=== PATIENT | female | born 1940 | race Caucasian/White ===

== ENCOUNTER 2016-11-05 08:52 | Emergency (ER) | payer MEDICARE, BC ==
[2016-11-05] MEDS ORDERED: MAG HYDROX/AL HYDROX/SIMETH 30 ML UDC PO STA (09:45)
[2016-11-05] MEDS ORDERED: LIDOCAINE VISCOUS 2% 15 ML UDC MM STA (09:45)
[2016-11-05] MEDS ORDERED: PHENobarb/HYOSCY/ATROPINE/SCOP 5 ML SYRINGE PO STA (09:45)
[2016-11-05] MEDS ORDERED: PHENobarb/HYOSCY/ATROPINE/SCOP 5 ML SYRINGE PO ONE (10:03)
[2016-11-05] MEDS ORDERED: LIDOCAINE VISCOUS 2% 15 ML UDC MM ONE (10:03)
[2016-11-05] MEDS ORDERED: MAG HYDROX/AL HYDROX/SIMETH 30 ML UDC ONE (10:03)
== END 2016-11-05 10:50 | disposition home or self-care (01) ==
DX: K21.9 Gastro-esophageal reflux disease without esophagitis (principal); I51.7 Cardiomegaly; E78.5 Hyperlipidemia, unspecified; E03.9 Hypothyroidism, unspecified; Z79.82 Long term (current) use of aspirin
CPT/HCPCS: 36415; 71010; 80053; 83690; 84484; 85025; 93005; 93010; 99283; 99284; A9270

== ENCOUNTER 2016-12-03 18:23 | Emergency (ER) | payer MEDICARE, BC ==
[2016-12-03] MEDS ORDERED: ASPIRIN CHEW 81 MG TABLET PO STA ×2 (20:37→21:01)
[2016-12-03] MEDS ORDERED: ASPIRIN 325 MG TABLET PO ONE (20:46)
[2016-12-03] MEDS ORDERED: ASPIRIN CHEW 81 MG TABLET ONE (20:49)
== END 2016-12-03 22:51 | disposition home or self-care (01) ==
DX: R07.9 Chest pain, unspecified (principal); R03.0 Elevated blood-pressure reading, without diagnosis of hypertension; E78.00 Pure hypercholesterolemia, unspecified; E03.9 Hypothyroidism, unspecified; K21.9 Gastro-esophageal reflux disease without esophagitis; Z87.891 Personal history of nicotine dependence
CPT/HCPCS: 36415; 71020; 80053; 81003; 83690; 84484; 85025; 85379; 85610; 85730; 93005; 93010; 99284; 99285; A9270

== ENCOUNTER 2016-12-11 10:35 | Outpatient (CLI) | payer MEDICARE, BC | END 2016-12-11 10:36 | disposition home or self-care (01) | DX: N64.4 Mastodynia (principal) ==

== ENCOUNTER 2017-03-19 12:05 | Outpatient (CLI) | payer MEDICARE, BC ==
--- NOTE | 2017-03-19 14:59 | XRAY Report ---
THREE-VIEW LEFT FIFTH TOE: 03/19/2017 CLINICAL INDICATION: Injury. FINDINGS: AP, lateral, oblique views of the left fifth toe are limited by positioning. No gross fra cture is appreciated. Soft tissue swelling is present. No radiopaque foreign body is seen in the so ft tissues. IMPRESSION: SOFT TISSUE SWELLING, BUT NO EVIDENCE OF ACUTE FRACTURE. JOB #: [id number] EXT JOB #:[id number]
== END 2017-03-19 12:06 | disposition home or self-care (01) ==
LOC: DI 12:05
PROVIDERS: ATTEND Podiatrist
DX: S99.922A Unspecified injury of left foot, initial encounter (principal)
CPT/HCPCS: 73660

== ENCOUNTER 2017-09-16 09:12 | Emergency (ER) | payer MEDICARE, BC ==
[2017-09-16 09:21] VITALS: BP 160/75
--- NOTE | 2017-09-16 09:33 | ED Physician Documentation ---
History of Present Illness - Stated complaint Stated Complaint: CHEST PX - Chief complaint Chief Complaint: Cardiac - History obtained from History obtained from: Patient, Family - History of Present Illness Timing: How many hours ago (5) Pain level max: 6 Pain level now: 0 Improved by: nothing Worsened by: nothing - Additonal information Additional information: Patient is a 76-year-old female who presents to the emergency department with left-sided flank and chest pain. States that she has felt very gassy today. She felt the pain at approximately 5 AM and then again when she was in the shower. Has had pain similar to this in the past with no cause found. Her pain resolved upon arrival to the emergency department when she was stuck with the IV catheter. She currently is asymptomatic. Review of Systems Ten Systems: 10 systems reviewed and negative Constitutional: denies: Fever, Chills Ears: denies: Ear pain Nose: denies: Rhinorrhea / runny nose, Congestion Throat: denies: Sore throat Cardiac: denies: Palpitations Respiratory: denies: Dyspnea, Cough, Hemoptysis, Wheezing GI: reports: Diarrhea (mild). 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 Psych: None Musculoskeletal: None - Past Surgical History Past Surgical History: Yes General: Cholecystectomy, Appendectomy HEENT: Tonsil/Adenoidectomy - Present Medications Home Medications: Ambulatory Orders Medication Instructions Recorded Confirmed Aspirin Chewable [St Viral 81 mg PO DAILY 06/01/13 12/03/16 Aspirin] Levothyroxine [Synthroid] 25 mcg PO QDAC 06/01/13 12/03/16 Omeprazole [PriLOSEC] 10 mg PO BID 11/05/16 12/03/16 - Allergies Allergies/Adverse Reactions: Allergies Allergy/AdvReac Type Severity Reaction Status Date / Time NSAIDS (Non-Steroidal Allergy Itching Verified 12/03/16 18:43 Anti-Inflamma codeine [Codeine] AdvReac Intermediate Hallucinati Verified 12/03/16 18:43 ons morphine AdvReac Intermediate Hallucinati Verified 12/03/16 18:43 ons nickel [Nickel] AdvReac Intermediate Rash Verified 12/03/16 18:43 Penicillins AdvReac Intermediate Rash Verified 12/03/16 18:43 - Social History Does the pt smoke?: No Smoking Status: Never smoker Does the pt drink ETOH?: No Does the pt have substance abuse?: No - Immunizations Immunizations are current?: Yes - POLST Patient has POLST: No PD ED PE NORMAL - Vitals Vital signs reviewed: Yes - General General: Alert and oriented X 3, No acute distress, Well developed/nourished - HEENT HEENT: PERRL, Moist mucous membranes - Neck Neck: Supple, no meningeal sign - Cardiac Cardiac: RRR, Strong equal pulses - Respiratory Respiratory: No respiratory distress, Clear bilaterally - Abdomen Abdomen: Soft, Non tender, Non distended - Back Back: No CVA TTP, No spinal TTP - Derm Derm: Warm and dry, No rash - Extremities Extremities: No deformity, No edema, No calf tenderness / cord - Neuro Neuro: Alert and oriented X 3 - Psych Psych: Normal mood, Normal affect Results - Vitals Vitals: Vital Signs - 24 hr 09/16/17 09:16 Temperature 36.3 C L Heart Rate 72 Respiratory 18 Rate Blood Pressure 160/75 H O2 Saturation 97 Oxygen O2 Source Room air - EKG (time done) 0918 Rate: Rate (enter#) (70) Rhythm: NSR [place]: Normal Intervals: Normal [place], RBBB Computer interpretation: Agree with computer - Labs Labs: Laboratory Tests 09/16/17 09/16/17 09/16/17 09:25 09:25 09:25 WBC 5.7 RBC 4.32 Hgb 12.9 Hct 38.7 MCV 89.6 MCH 30.0 MCHC 33.4 RDW 14.3 Plt Count 221 MPV 8.5 Neut # 3.3 Lymph # 1.8 [place] # 0.4 Eos # 0.1 Baso # 0.0 Absolute Nucleated RBC 0.00 Nucleated RBC % 0.0 Sodium 141 Potassium 3.7 Chloride 103 Carbon Dioxide 26 Anion Gap 12.0 BUN 16 Creatinine 0.7 Estimated GFR (MDRD) 81 L Glucose 108 H Calcium 9.1 Total Bilirubin 0.6 AST 21 ALT 16 Alkaline Phosphatase 60 Troponin I < 0.04 Total Protein 6.9 Albumin 3.9 Globulin 3.0 Albumin/Globulin Ratio 1.3 Lipase 30 09/16/17 11:58 WBC RBC Hgb Hct MCV MCH MCHC RDW Plt Count MPV Neut # Lymph # [place] # Eos # Baso # Absolute Nucleated RBC Nucleated RBC % Sodium Potassium Chloride Carbon Dioxide Anion Gap BUN Creatinine Estimated GFR (MDRD) Glucose Calcium Total Bilirubin AST ALT Alkaline Phosphatase Troponin I < 0.04 Total Protein Albumin Globulin Albumin/Globulin Ratio Lipase - Rads (name of study) cxr Radiology: Prelim report reviewed, EMP read contemporaneously, See rad report ( no acute disease) PD MEDICAL DECISION MAKING - ED course Complexity details: reviewed results, re-evaluated patient, considered differential (No ST elevation ND, no aortic dissection, no PE, no tension pneumothorax, no aortic aneurysm), d/w patient ED course: Patient is a 76-year-old female presents to the emergency department with atypical chest pain. Negative troponin 2. Normal EKG for her. No acute findings on chest x-ray. Symptoms resolved quickly in the emergency department , coinciding with an IV poke. Patient does not want to take any aspirin. She is well-appearing, nontoxic. No recurrence of symptoms. Patient counseled regarding signs and symptoms for which I believe and urgent re-evaluation would be necessary. Patient with good understanding of and agreement to plan and is comfortable going home at this time This document was made in part using voice recognition software. While efforts are made to proofread this document, sound alike and grammatical errors may occur. Departure - Departure Disposition: 01 Home, Self Care Clinical Impression: Atypical chest pain Condition: Good Instructions: ED Chest Pain Atypical Unkn Cause Follow-Up: Gissell Raza MD [Primary Care Provider] - Within 1 week Comments: The cause of your symptoms is unclear today. Return if you worsen. Discharge Date/Time: 09/16/17 12:36
[2017-09-16 09:36] LABS: BASOPHILS % (AUTO) 0.5 %; EOSINOPHILS # (AUTO) 0.1 10^3/uL (0.0-0.7); EOSINOPHILS % (AUTO) 1.8 %; HGB - HEMOGLOBIN 12.9 g/dL (12.0-16.0); LYMPHOCYTES # (AUTO) 1.8 10^3/uL (1.5-3.5); LYMPHOCYTES % (AUTO) 31.6 %; MEAN CORPUSCULAR HGB CONC 33.4 g/dL (32.0-36.0); MEAN CORPUSCULAR VOLUME 89.6 fL (81.0-99.0); MEAN PLATELET VOLUME 8.5 fL (7.9-10.8); MONOCYTES # (AUTO) 0.4 10^3/uL (0.0-1.0); MONOCYTES % (AUTO) 7.8 %; NEUTROPHILS # (AUTO) 3.3 10^3/uL (1.5-6.6); NEUTROPHILS % (AUTO) 58.3 %; PLT - PLATELET COUNT 221 10^3/uL (130-450); RED BLOOD COUNT 4.32 10^6/uL (4.20-5.40); RED CELL DISTRIBUTION WIDTH 14.3 % (12.0-15.0); WHITE BLOOD COUNT 5.7 x10^3/uL (4.8-10.8)
[2017-09-16 09:48] LABS: ALBUMIN 3.9 g/dL (3.2-5.5); ALBUMIN/GLOBULIN RATIO 1.3 (1.0-2.2); BILIRUBIN,TOTAL 0.6 mg/dL (0.2-1.0); CALCIUM 9.1 mg/dL (8.5-10.3); CREATININE 0.7 mg/dL (0.4-1.0); TOTAL PROTEIN 6.9 g/dL (6.7-8.2)
--- NOTE | 2017-09-16 10:33 | XRAY Report ---
EXAM: CHEST RADIOGRAPHY EXAM DATE: 09/16/2017 10:14 AM. CLINICAL HISTORY: Chest pain. COMPARISON: 12/03/2016. TECHNIQUE: 1 view. FINDINGS: Lungs/Pleura: No focal opacities evident. No pleural effusion. No pneumothorax. Mediastinum: Heart appears prominent in size some of which is due to the AP portable technique. Other: None. IMPRESSION: Negative portable chest for acute findings compared to 12/03/2016. [facility] Referring Provider Line: [phone] SITE ID: [id number]
== END 2017-09-16 12:36 | disposition home or self-care (01) ==
LOC: ED 09:12
DX: R07.89 Other chest pain (principal); I45.10 Unspecified right bundle-branch block; R94.31 Abnormal electrocardiogram [ECG] [EKG]; E78.00 Pure hypercholesterolemia, unspecified; E03.9 Hypothyroidism, unspecified; K21.9 Gastro-esophageal reflux disease without esophagitis; Z79.82 Long term (current) use of aspirin
CPT/HCPCS: 36415; 71045; 80053; 83690; 84484; 85025; 93005; 99283; 99284

== ENCOUNTER 2017-09-30 15:41 | Outpatient (CLI) | payer MEDICARE, BC | END 2017-09-30 15:42 | disposition home or self-care (01) | LOC: LAB.R 15:41 | PROVIDERS: ATTEND Nurse Practitioner Obstetrics & Gynecology | DX: N76.0 Acute vaginitis (principal); R30.0 Dysuria | CPT/HCPCS: 87086; 87480; 87510; 87660 ==

== ENCOUNTER 2017-10-06 13:45 | Outpatient (CLI) | payer MEDICARE, BC ==
--- NOTE | 2017-10-08 11:11 | DEXA Report ---
DEXA SCAN: 10/06/2017 CLINICAL INDICATION: Osteopenia, postmenopausal. TECHNIQUE: Dual energy x-ray absorptiometry (DXA) was performed on a [employer] system. Regions measured are the AP spine, femoral neck, and, if needed, forearm. COMPARISON: None. In accordance with the International Society for Clinical Densitometry (ISCD) guidelines, data from previous exams may be reanalyzed using current recommendations and techniques. This is done to allow a more accurate basis for comparison with the current study. FINDINGS The data for the lumbar spine is as follows: REGION BMD (g/cm/cm) T-SCORE Z-SCORE L1 0.827 -2.5 -0.5 L2 0.998 -1.7 0.3 L3 1.121 -0.7 1.3 L4 0.882 -2.6 -0.7 L1-L4 0.956 -1.9 0.1 NOTE: All evaluable vertebrae are used for classification. The data for the hip is as follows: REGION BMD (g/cm/cm) T-SCORE Z-SCORE Neck 0.936 -0.7 1.4 TOTAL 0.973 -0.3 1.7 NOTE: The femoral neck or total proximal femur, whichever is lowest, is used for classification. IMPRESSION THE WHO CLASSIFICATION BASED ON THE INTERNATIONAL REFERENCE STANDARD IS OSTEOPENIA. THE FRACTURE RISK IS INCREASED. RECOMMENDATION: Patients with diagnosis of osteoporosis or osteopenia should have regular bone mineral density assessment. For those eligible for Medicare, routine testing is allowed once every 2 years. Testing frequency can be increased for patients who have rapidly progressing disease or for those who are receiving medical therapy to restore bone mass. COMMENT: World Health Organization (WHO) definitions for osteoporosis and osteopenia: NORMAL BMD: T-score at 1.0 or higher, fracture risk is low. OSTEOPENIA BMD: T-score between 1.0 and -2.5, fracture risk is increased. OSTEOPOROSIS BMD: T-score at 2.5 or lower, fracture risk high. National Osteoporosis Foundation recommends: 1. Obtain adequate dietary calcium (at least 1200 mg per day) and vitamin D (400 -800 international units per day). 2. Participate, as appropriate, in regular weightbearing and muscle- strengthening exercise. 3. Avoid tobacco use and reduce alcohol and caffeine intake. 4. For more detailed information see the website at www.NOF.org. TD: 10/06/2017 16:44 [email or web address]
== END 2017-10-06 13:46 | disposition home or self-care (01) ==
LOC: DI 13:45
PROVIDERS: ATTEND Internal Medicine
DX: M85.88 Other specified disorders of bone density and structure, other site (principal)
CPT/HCPCS: 77080

== ENCOUNTER 2017-10-12 15:03 | Outpatient (CLI) | payer MEDICARE, BC ==
[2017-10-12 18:15] LABS: BILIRUBIN,URINE NEGATIVE (NEGATIVE); GLUCOSE, URINE (UA) NEGATIVE (NEGATIVE); KETONES,URINE (UA) NEGATIVE (NEGATIVE); LEUKOCYTE ESTERASE, URINE NEGATIVE (NEGATIVE); NITRITE,URINE NEGATIVE (NEGATIVE); OCCULT BLOOD,URINE NEGATIVE (NEGATIVE); PROTEIN,URINE NEGATIVE (NEGATIVE); UROBILINOGEN,URINE 0.2 (NORMAL) E.U./dL (NORMAL)
[2017-10-12 18:21] LABS: CLARITY,URINE CLEAR (CLEAR)
[2017-10-12 18:27] LABS: BACTERIA,URINE None Seen /HPF (None Seen); RBC,URINE 0-5 /HPF (0-5); SQUAMOUS EPITHELIAL CELL,UR NONE SEEN (<= Few)
== END 2017-10-12 15:04 | disposition home or self-care (01) ==
LOC: LAB.R 15:03
PROVIDERS: ATTEND Obstetrics & Gynecology
DX: R82.99 Other abnormal findings in urine (principal)
CPT/HCPCS: 81001

== ENCOUNTER 2017-12-01 18:58 | Outpatient (CLI) | payer MEDICARE, BC ==
--- NOTE | 2017-12-02 11:35 | Ultrasound Report ---
THYROID ULTRASOUND: 12/01/2017 CLINICAL INDICATION: Multinodular goiter. COMPARISON: 10/21/2015, 01/30/2013. TECHNIQUE: Real-time scanning was performed with area representative static images obtained. FINDINGS: The right lobe measures 5.8 x 2.1 x 1.8 cm, and the left lobe measures 4.5 x 1.4 x 1.3 cm. The isthmus measures 1 mm. The thyroid is diffusely heterogeneous. The largest nodule, in the mid portion of the right lobe, now measures 3.3 x 1.7 x 1.6 cm, not significantly changed. The largest nodule in the left lobe now measures 1.1 x 0.8 x 0.4 cm, not significantly changed. Multiple smaller bilateral nodules are stable. No new suspicious nodule is seen. IMPRESSION: STABLE APPEARANCE OF MULTINODULAR GOITER. TD: 12/02/2017 11:34
== END 2017-12-01 18:59 | disposition home or self-care (01) ==
LOC: DI 18:58
PROVIDERS: ATTEND Internal Medicine
DX: E04.2 Nontoxic multinodular goiter (principal)
CPT/HCPCS: 76536

== ENCOUNTER 2017-12-29 12:54 | Outpatient (CLI) | payer MEDICARE, BC ==
--- NOTE | 2018-01-05 13:43 | Mammography Report ---
DIGITAL SCREENING MAMMOGRAM: 12/29/2017 CLINICAL INDICATION: A 77-year-old with history of benign right breast biopsy for screening. COMPARISON: 11/2016, 10/2015, 09/2014, 09/2013, 12/2011. TECHNIQUE: Routine CC and MLO projections as well as bilateral laterally exaggerated craniocaudal views were obtained of the breasts. FINDINGS: The breasts again demonstrate heterogeneously dense fibroglandular parenchyma bilaterally. Biopsy marker in the right upper central breast is stable. Coarse and punctate, typically benign calcifications are present. No suspicious masses, clustered microcalcifications, or regions of architectural distortion are identified. IMPRESSION: BENIGN FINDINGS. RECOMMENDATION: Routine annual screening unless otherwise clinically indicated. BI-RADS CATEGORY 2 - BENIGN FINDINGS. STANDARD QUALIFYING STATEMENTS: 1. This examination was reviewed with the aid of Computer-Aided Detection (CAD). 2. A negative or benign imaging report should not delay biopsy if clinically suspicious findings are present. Consider surgical consultation if warranted. More than 5% of cancers are not identified by imaging. 3. Dense breasts may obscure an underlying neoplasm. TD: 01/05/2018 13:30
== END 2017-12-29 12:55 | disposition home or self-care (01) ==
LOC: DI 12:54
PROVIDERS: ATTEND Internal Medicine
DX: Z12.31 Encounter for screening mammogram for malignant neoplasm of breast (principal)
CPT/HCPCS: 77067

== ENCOUNTER 2018-01-03 09:46 | Outpatient (CLI) | payer MEDICARE, BC ==
[2018-01-03 15:05] VITALS: BP 140/82
--- NOTE | 2018-01-03 15:46 | Nuclear Medicine Report ---
EXAM: SINGLE-ISOTOPE EXERCISE STRESS TEST. SINGLE-ISOTOPE AND ONE-DAY REST/STRESS MYOCARDIAL PERFUSION SCAN S WITH TOMOGRAPHIC IMAGING, QUANTITATIVE ANALYSIS, WALL MOTION ANALYSIS AND CALCULATION OF EJECTION F RACTION. EXAM DATE: 01/03/2018 03:04 PM. CLINICAL HISTORY: CHEST PAIN. COMPARISON: None. TECHNIQUE: A rest myocardial perfusion scan was done with tomography after the intravenous administration of 10. 1 mCi Tc-99m sestamibi. After an appropriate delay, a treadmill exercise stress was performed according to department protoco l. The patient exercised for 7 minutes and 57 seconds. The maximum heart rate was 160 bpm, which was 111% of the maximum predicted heart rate of 143 bpm. At approximately peak heart rate, 40.1 mCi of Tc -99m sestamibi was injected for stress myocardial perfusion scan. Motion correction was applied when appropriate. Gated tomographic images were obtained for wall motion analysis and computation of left ventricular e jection fraction. FINDINGS: Perfusion images: Left ventricular chamber size is normal at rest and unchanged at stress. No convincing fixed perfusion deficits. No convincing reversible perfusion deficits. Gated images: No focal wall motion abnormality. The left ventricular ejection fraction is estimated at 85% (normal > 50%). IMPRESSION: 1. No convincing reversible perfusion deficits to indicate stress-induced ischemia. 2. No convincing fixed perfusion deficits. 3. Left ventricular ejection fraction of 85% (normal > 50%). 4. No focal wall motion abnormalities. [facility] Referring Provider Line: [phone] SITE ID: [id number]
--- NOTE | 2018-01-03 15:54 | CARDIAC PROCEDURE NOTE ---
DATE OF SERVICE: 01/03/2018 Physician: Gissell Raaz MD PROCEDURE: Exercise Cardiolite test. PROTOCOL: Harshad protocol. TIME: 7 minutes, 57 seconds. SHANNON less than -20. HEART RATE RESPONSE: Baseline 83 to maximum 160. BLOOD PRESSURE RESPONSE: Baseline 140/82 to maximum 160/70. ST SEGMENT RESPONSE: No significant ST elevations or depressions. ARRHYTHMIAS: None detected. EXAM CHANGES: None. REASON FOR STOPPING TEST: The patient had exceeded her target heart rate. IMPRESSION: No symptoms; no significant EKG changes. CONCLUSION: Await Cardiolite portion. TD: 01/03/2018 13:35 MTDD
== END 2018-01-03 09:47 | disposition home or self-care (01) ==
LOC: DI 09:46
PROVIDERS: ATTEND Internal Medicine
DX: R07.9 Chest pain, unspecified (principal)
CPT/HCPCS: 78452; 93017; A9500

== ENCOUNTER 2018-05-03 08:00 | Outpatient (CLI) | payer MEDICARE, BC | END 2018-05-03 08:01 | disposition home or self-care (01) | LOC: LAB.R 08:00 | PROVIDERS: ATTEND Obstetrics & Gynecology | DX: R10.2 Pelvic and perineal pain (principal) | CPT/HCPCS: 87086 ==

== ENCOUNTER 2018-05-12 07:37 | Outpatient (CLI) | payer MEDICARE, BC ==
[2018-05-12 09:39] LABS: HB2 TOTAL 14.1 g/dL; HEMOGLOBIN A1C 0.65 g/dL; HEMOGLOBIN A1C % 6.4 % (4.6-6.2)
== END 2018-05-12 07:38 | disposition home or self-care (01) ==
LOC: LAB 07:37
PROVIDERS: ATTEND Internal Medicine
DX: E03.9 Hypothyroidism, unspecified (principal); R73.01 Impaired fasting glucose; R20.8 Other disturbances of skin sensation
CPT/HCPCS: 36415; 81599; 82947; 83036; 83835; 84443; 86316

== ENCOUNTER 2018-05-14 08:00 | Outpatient (CLI) | payer MEDICARE, BC | END 2018-05-14 08:01 | disposition home or self-care (01) | LOC: LAB.R 08:00 | PROVIDERS: ATTEND Internal Medicine | DX: E03.9 Hypothyroidism, unspecified (principal); R73.01 Impaired fasting glucose; R20.8 Other disturbances of skin sensation | CPT/HCPCS: 81599; 82384; 83835 ==

== ENCOUNTER 2018-05-16 08:00 | Outpatient (CLI) | payer MEDICARE, BC | END 2018-05-16 08:01 | disposition home or self-care (01) | LOC: LAB.R 08:00 | PROVIDERS: ATTEND Obstetrics & Gynecology | DX: N89.8 Other specified noninflammatory disorders of vagina (principal) | CPT/HCPCS: 87480; 87510; 87660 ==

== ENCOUNTER 2018-05-25 10:45 | Outpatient (CLI) | payer MEDICARE, BC ==
[2018-05-25] MEDS ORDERED: IOPAMIDOL-300 50 ML VIAL ONE (11:00)
[2018-05-25] MEDS ORDERED: IOPAMIDOL-300 100 ML VIAL ONE (11:00)
[2018-05-25 11:18] LABS: CREATININE 0.7 mg/dL (0.4-1.0)
[2018-05-25] MEDS ORDERED: IOPAMIDOL-300 100 ML VIAL IVP ONE (14:34)
[2018-05-25] MEDS ORDERED: IOPAMIDOL-300 50 ML VIAL PO ONE (14:34)
--- NOTE | 2018-05-25 16:13 | CT Report ---
Reason: MALIGNANT CARCINOID TUMOR OF UNSPECIFIED SITE Procedure Date: 05/25/2018 Accession Number: [id number] / [id number] Procedure: CT - Abdomen/Pelvis W/ CPT Code: FULL RESULT: EXAM: CT ABDOMEN AND PELVIS EXAM DATE: 05/25/2018 12:31 PM. CLINICAL HISTORY: Malignant carcinoid tumor of unspecified site. COMPARISONS: None. TECHNIQUE: Routine helical CT imaging was performed through the abdomen and pelvis. IV contrast: ISOVUE 300 100mL. Enteric contrast: Yes. Reconstructions: Coronal and sagittal. In accordance with CT protocol optimization, one or more of the following dose reduction techniques were utilized for this exam: automated exposure control, adjustment of mA and/or KV based on patient size, or use of iterative reconstructive technique. FINDINGS: Lung Bases: Unremarkable. Liver: Normal. No masses. Gallbladder/Bile Ducts: Status post cholecystectomy. Spleen: Normal. Pancreas: Atrophic with no mass lesion identified. Adrenal Glands: Normal. Kidneys: Normal. No masses or hydronephrosis. Peritoneal Cavity/Bowel: Normal. No free fluid, free air or adenopathy. No masses or acute inflammatory process. Pelvic Organs: Normal. The bladder and visualized pelvic organs are within normal limits. Vasculature: Abdominal atherosclerosis, mild without aneurysm. Bones: Dextroconvex lumbar scoliosis centered about L2. No aggressive osseous lesions. Other: None. IMPRESSION: No abnormal mass or lymphadenopathy. [facility]
== END 2018-05-25 10:46 | disposition home or self-care (01) ==
LOC: LAB 10:45 → DI 10:46
PROVIDERS: ATTEND Internal Medicine
DX: C7A.00 Malignant carcinoid tumor of unspecified site (principal); Z90.49 Acquired absence of other specified parts of digestive tract
CPT/HCPCS: 36415; 74177; 82565; Q9967

== ENCOUNTER → 2018-06-13 | Outpatient (CLI) | payer MEDICARE, BC | LOC: LAB.R 11:33 | PROVIDERS: ATTEND Obstetrics & Gynecology | DX: N76.0 Acute vaginitis (principal) | CPT/HCPCS: 87480; 87510; 87660 ==

== ENCOUNTER 2018-06-23 00:25 | Emergency (ER) | payer MEDICARE, BC ==
[2018-06-23] MEDS ORDERED: METOCLOPRAMIDE 10 MG/2 ML VIAL IVP STA (01:02)
[2018-06-23] MEDS ORDERED: SODIUM CHLORIDE 0.9% 1,000 ML IV ONE (01:02)
[2018-06-23] MEDS ORDERED: ACETAMINOPHEN 1,000 MG/100 ML 100 ML IV STA (01:08)
[2018-06-23] MEDS ORDERED: diazePAM 5 MG TABLET PO STA (01:08)
--- NOTE | 2018-06-23 01:21 | ED Physician Documentation ---
History of Present Illness - Stated complaint Stated Complaint: DIZZINESS,DIAZ - Chief complaint Chief Complaint: Neuro - Additonal information Additional information: 77-year-old female presents the emergency department with complaints of headache and dizziness. The patient has had a headache which started this evening and is described as a throbbing sensation throughout her entire head. The patient has had dizziness ongoing for the past several days. The patient has a spinning sensation and lightheadedness. No specific triggering factors or relieving factors. The patient developed a headache this evening which made her more concerned. The patient denies vision changes, speech difficulty, confusion, focal motor weakness or sensory changes. The patient denies neck stiffness or radiation of pain into her neck. Symptoms are described as moderate. Review of Systems Constitutional: denies: Fever, Chills Eyes: denies: Discharge Ears: denies: Ear pain Nose: denies: Congestion Throat: denies: Sore throat Cardiac: denies: Chest pain / pressure Respiratory: denies: Cough GI: denies: Abdominal Pain : denies: Dysuria Skin: denies: Rash Musculoskeletal: denies: Neck pain Neurologic: reports: Headache. 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 Psych: Panic attacks Musculoskeletal: None - Past Surgical History Past Surgical History: Yes General: Cholecystectomy, Appendectomy HEENT: Tonsil/Adenoidectomy - Present Medications Home Medications: Ambulatory Orders Medication Instructions Recorded Confirmed Aspirin Chewable [St Viral 81 mg PO DAILY 06/01/13 12/03/16 Aspirin] Levothyroxine [Synthroid] 25 mcg PO QDAC 06/01/13 12/03/16 Omeprazole [PriLOSEC] 10 mg PO BID 11/05/16 12/03/16 - Allergies Allergies/Adverse Reactions: Allergies Allergy/AdvReac Type Severity Reaction Status Date / Time NSAIDS (Non-Steroidal Allergy Itching Verified 06/23/18 00:36 Anti-Inflamma codeine [Codeine] AdvReac Intermediate Hallucinati Verified 06/23/18 00:36 ons morphine AdvReac Intermediate Hallucinati Verified 06/23/18 00:36 ons nickel [Nickel] AdvReac Intermediate Rash Verified 06/23/18 00:36 Penicillins AdvReac Intermediate Rash Verified 06/23/18 00:36 - Social History Does the pt smoke?: No Smoking Status: Never smoker Does the pt drink ETOH?: No Does the pt have substance abuse?: No - Immunizations Immunizations are current?: Yes - POLST Patient has POLST: No PD ED PE NORMAL - General General: Alert and oriented X 3, No acute distress - HEENT HEENT: Atraumatic, PERRL, EOMI, Ears normal - Neck Neck: Supple, no meningeal sign - Cardiac Cardiac: RRR, Strong equal pulses - Respiratory Respiratory: No respiratory distress - Abdomen Abdomen: Soft, Non tender, Non distended - Derm Derm: Normal color - Extremities Extremities: No deformity, No edema - Neuro Neuro: Alert and oriented X 3, 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 The patient has a nega tive pronator drift in the upper and lower extremities. The patient has equal classified ad taker strength. The patient has normal sensation light touch.) - Psych Psych: Normal affect Results - Vitals Vitals: Vital Signs - 24 hr 06/23/18 06/23/18 06/23/18 00:26 01:58 03:36 Temperature 36.5 C Heart Rate 66 66 71 Respiratory 16 15 17 Rate Blood Pressure 159/81 H 135/78 H 150/73 H O2 Saturation 100 100 100 Oxygen O2 Source Room air - EKG (time done) 00:40 Rate: Rate (enter#) Rhythm: NSR [place]: Normal Intervals: Normal [place], QRS normal Ischemia: Non specific changes - Labs Labs: Laboratory Tests 06/23/18 06/23/18 06/23/18 01:20 01:20 01:45 WBC 6.2 RBC 4.24 Hgb 13.0 Hct 38.1 MCV 89.7 MCH 30.6 MCHC 34.2 RDW 14.1 Plt Count 231 MPV 9.2 Neut # (Auto) 3.2 Lymph # (Auto) 2.2 [place] # (Auto) 0.6 Eos # (Auto) 0.2 Baso # (Auto) 0.1 Absolute Nucleated RBC 0.00 Nucleated RBC % 0.0 ESR 14 Sodium 140 Potassium 3.5 Chloride 105 Carbon Dioxide 27 Anion Gap 8.0 BUN 17 Creatinine 0.6 Estimated GFR (MDRD) 97 Glucose 111 H Calcium 9.0 Total Bilirubin 0.7 AST 29 ALT 30 Alkaline Phosphatase 56 Troponin I Total Protein 6.8 Albumin 4.0 Globulin 2.8 Albumin/Globulin Ratio 1.4 Lipase 33 06/23/18 01:45 WBC RBC Hgb Hct MCV MCH MCHC RDW Plt Count MPV Neut # (Auto) Lymph # (Auto) [place] # (Auto) Eos # (Auto) Baso # (Auto) Absolute Nucleated RBC Nucleated RBC % ESR Sodium Potassium Chloride Carbon Dioxide Anion Gap BUN Creatinine Estimated GFR (MDRD) Glucose Calcium Total Bilirubin AST ALT Alkaline Phosphatase Troponin I < 0.04 Total Protein Albumin Globulin Albumin/Globulin Ratio Lipase - Rads (name of study) CTA head/neck Radiology: Final report received (IMPRESSION: CT Head: No acute intracranial abnormality. Specifically, no evidence of acute infarct, hemorrhage, or mass lesion. No abnormal enhancement. CTA Head: Mild to moderate narrowing of bilateral posterior cerebral arteries (P2 and P3 segments). IMPRESSION: Normal neck CT angiogram. No hemodynamically significant stenoses. ), See rad report PD MEDICAL DECISION MAKING - ED course ED course: On reevaluation the patient is resting comfortably and her symptoms are much improved. The patient's workup does not reveal any significant abnormality that would necessitate admission to the hospital or transfer. The patient currently appears appropriate for discharge and ongoing outpatient management. I discussed with her the findings. I discussed with her the incidental findings. The patient is scheduled to see her primary care today. I recommended that they can order an outpatient MRI if she is not having any other improvement. She understands and agrees. I discussed warning signs and recommended returning to the emergency department immediately for worsening or any concerns. Departure - Departure Disposition: 01 Home, Self Care Clinical Impression: Dizziness Headache Qualifiers: Headache type: unspecified Headache chronicity pattern: unspecified pattern Intractability: not intractable Qualified Code(s): R51 - Headache Condition: Good Instructions: ED Dizziness UKO, ED Cephalgia Unspecified Follow-Up: Gissell Raza MD [Primary Care Provider] - (Please follow-up with your primary care physician as scheduled today. If your symptoms are not improving please ask your primary care to arrange for an outpatient MRI to further assess your symptoms.) Comments: Please return to the emergency department for worsening symptoms or any concerns per
[2018-06-23 01:45] LABS: BASOPHILS # (AUTO) 0.1 10^3/uL (0.0-0.1); BASOPHILS % (AUTO) 0.9 %; EOSINOPHILS # (AUTO) 0.2 10^3/uL (0.0-0.7); EOSINOPHILS % (AUTO) 2.7 %; LYMPHOCYTES # (AUTO) 2.2 10^3/uL (1.5-3.5); LYMPHOCYTES % (AUTO) 35.4 %; MEAN CORPUSCULAR HEMOGLOBIN 30.6 pg (27.0-31.0); MEAN CORPUSCULAR HGB CONC 34.2 g/dL (32.0-36.0); MEAN CORPUSCULAR VOLUME 89.7 fL (81.0-99.0); MEAN PLATELET VOLUME 9.2 fL (7.9-10.8); MONOCYTES # (AUTO) 0.6 10^3/uL (0.0-1.0); MONOCYTES % (AUTO) 9.4 %; NEUTROPHILS # (AUTO) 3.2 10^3/uL (1.5-6.6); NEUTROPHILS % (AUTO) 51.6 %; PLT - PLATELET COUNT 231 10^3/uL (130-450); RED BLOOD COUNT 4.24 10^6/uL (4.20-5.40); RED CELL DISTRIBUTION WIDTH 14.1 % (12.0-15.0); WHITE BLOOD COUNT 6.2 x10^3/uL (4.8-10.8)
[2018-06-23 01:56] LABS: ALBUMIN/GLOBULIN RATIO 1.4 (1.0-2.2); BILIRUBIN,TOTAL 0.7 mg/dL (0.2-1.0); CREATININE 0.6 mg/dL (0.4-1.0); TOTAL PROTEIN 6.8 g/dL (6.7-8.2)
[2018-06-23] MEDS ORDERED: IOPAMIDOL-300 100 ML VIAL ONE (02:04)
[2018-06-23] MEDS ORDERED: IOPAMIDOL-300 100 ML VIAL IVP ONE (02:45)
--- NOTE | 2018-06-23 03:21 | CT Report ---
Reason: DIAZ, with Dizziness Procedure Date: 06/23/2018 Accession Number: [id number] / [id number] Procedure: CT - Head Angio CPT Code: FULL RESULT: EXAM: CT ANGIOGRAM HEAD. CT SCAN OF THE HEAD WITHOUT AND WITH CONTRAST. EXAM DATE: 06/23/2018 02:42 AM CLINICAL HISTORY: DIAZ, with Dizziness. COMPARISON: None. TECHNIQUE: - CT Scan Head: Using a multidetector scanner, axial images were acquired from the foramen magnum to the skull vertex prior to and following contrast administration. - CT Angiogram: Using a multidetector scanner, high-resolution axial images were acquired from the skull base through vertex following rapid infusion of intravenous contrast. Reformats: Multiplanar MIP reformats were reconstructed. Nascet criteria used for stenosis measurement. IV Contrast: ISOVUE 300 80mL. In accordance with CT protocol optimization, one or more of the following dose reduction techniques were utilized for this exam: automated exposure control, adjustment of mA and/or KV based on patient size, or use of iterative reconstructive technique. FINDINGS: NON-CONTRAST HEAD: Parenchyma: No intraparenchymal hemorrhage. No evidence of mass, midline shift, or CT findings of infarction. Braun-white differentiation is distinct. Extraaxial Spaces: Normal for age. No subdural or epidural collections identified. Ventricles: Normal in size and position. Sinuses and orbits: No mild right maxillary sinus mucosal thickening. Bones: No evidence of fracture or calvarial defect. Other: None. POST-CONTRAST HEAD: No abnormal enhancement. CT ANGIOGRAM HEAD: RIGHT: Internal Carotid artery: No evidence of dissection. No evidence of aneurysm along the intracranial ICA. Anterior Cerebral Artery: Patent without significant stenosis, aneurysm, or vascular malformation. Middle Cerebral Artery: Patent without significant stenosis, aneurysm, or vascular malformation. Posterior Cerebral Artery: Bands of moderate narrowing of right P2/P3 [employer]ERK segment. Vertebral Artery: Patent without significant stenosis. No evidence of dissection. LEFT: Internal Carotid artery: No evidence of dissection. No evidence of aneurysm along the intracranial ICA. Anterior Cerebral Artery: Patent without significant stenosis, aneurysm, or vascular malformation. Middle Cerebral Artery: Patent without significant stenosis, aneurysm, or vascular malformation. Posterior Cerebral Artery: Bands of mild narrowing of left P2 HOT[employer] REG[employer]ATION CLERK segment. Posterior Communicating Artery: Patent. No aneurysm. Vertebral Artery: Patent without significant stenosis. No evidence of dissection. CENTRAL: Anterior Communicating Artery: Patent. No aneurysm. Basilar Artery: Patent without significant stenosis. No aneurysm. DURAL VENOUS SINUSES AND MAJOR CENTRAL VEINS: Patent. IMPRESSION: CT Head: No acute intracranial abnormality. Specifically, no evidence of acute infarct, hemorrhage, or mass lesion. No abnormal enhancement. CTA Head: Mild to moderate narrowing of bilateral posterior cerebral arteries (P2 and P3 segments). RADIA
--- NOTE | 2018-06-23 03:25 | CT Report ---
Reason: DIAZ, neck pain, dizzy Procedure Date: 06/23/2018 Accession Number: [id number] / [id number] Procedure: CT - Neck Angio CPT Code: FULL RESULT: EXAM: CT ANGIOGRAM NECK EXAM DATE: 06/23/2018 02:43 AM. CLINICAL HISTORY: DIAZ, neck pain, dizzy. COMPARISON: None. TECHNIQUE: Routine axial helical imaging was performed from the skull base through the aortic arch. Reconstructions: Routine multiplanar 3D MIP reconstructions. IV Contrast: ISOVUE 300 80mL. Evaluation of arterial stenosis is based on a NASCET method of measurement. In accordance with CT protocol optimization, one or more of the following dose reduction techniques were utilized for this exam: automated exposure control, adjustment of mA and/or KV based on patient size, or use of iterative reconstructive technique. FINDINGS: Right Carotid: The common carotid, internal carotid, and external carotid arteries are widely patent. No dissection, significant atherosclerotic plaque, or calcification identified. Left Carotid: The common carotid, internal carotid, and external carotid arteries are widely patent. No dissection, significant atherosclerotic plaque, or calcification identified. Vertebrals: The vertebrobasilar system shows no stenoses. Intracranial Circulation: Normal. No stenoses or aneurysms of the visualized vessels. Other: There is a 2.8 cm right thyroid nodule. Patient is undergone prior thyroid ultrasound 12/01/2017. Lung apices clear. Soft tissues of neck otherwise unremarkable. There are moderate degenerative changes of the cervical spine. IMPRESSION: Normal neck CT angiogram. No hemodynamically significant stenoses. RADIA
[2018-06-23 03:36] VITALS: BP 150/73
== END 2018-06-23 04:05 | disposition home or self-care (01) ==
LOC: ED 00:25
DX: R42 Dizziness and giddiness (principal); R51 Headache; Z79.82 Long term (current) use of aspirin
CPT/HCPCS: 36415; 70496; 70498; 80053; 83690; 84484; 85025; 85651; 93005; 96361; 96365; 96375; 99283; A9270; J0131; J2765; Q9967

== ENCOUNTER 2018-08-29 08:00 | Outpatient (CLI) | payer MEDICARE, BC | END 2018-08-29 23:59 | disposition home or self-care (01) | LOC: LAB.R 08:00 | PROVIDERS: ATTEND Obstetrics & Gynecology | DX: N89.8 Other specified noninflammatory disorders of vagina (principal) | CPT/HCPCS: 87480; 87510; 87660 ==

== ENCOUNTER 2018-12-01 10:05 | Outpatient (CLI) | payer MEDICARE, BC ==
[2018-12-01 10:34] LABS: BASOPHILS % (AUTO) 0.7 %; EOSINOPHILS # (AUTO) 0.1 10^3/uL (0.0-0.7); EOSINOPHILS % (AUTO) 2.1 %; HGB - HEMOGLOBIN 13.2 g/dL (12.0-16.0); LYMPHOCYTES # (AUTO) 1.5 10^3/uL (1.5-3.5); LYMPHOCYTES % (AUTO) 24.2 %; MEAN CORPUSCULAR HEMOGLOBIN 29.7 pg (27.0-31.0); MEAN CORPUSCULAR HGB CONC 33.2 g/dL (32.0-36.0); MEAN CORPUSCULAR VOLUME 89.3 fL (81.0-99.0); MEAN PLATELET VOLUME 8.2 fL (7.9-10.8); MONOCYTES # (AUTO) 0.4 10^3/uL (0.0-1.0); MONOCYTES % (AUTO) 6.7 %; NEUTROPHILS % (AUTO) 66.3 %; PLT - PLATELET COUNT 273 10^3/uL (130-450); RED BLOOD COUNT 4.46 10^6/uL (4.20-5.40)
[2018-12-01 10:40] LABS: ALBUMIN 4.5 g/dL (3.2-5.5); ALBUMIN/GLOBULIN RATIO 1.3 (1.0-2.2); ALKALINE PHOSPHATASE 77 IU/L (42-121); ALT ALANINE AMINOTRANSFERASE 18 IU/L (10-60); AST ASPARTATE AMINOTRANSFERASE 24 IU/L (10-42); BILIRUBIN,TOTAL 0.4 mg/dL (0.2-1.0); BUN - BLOOD UREA NITROGEN 19 mg/dL (6-20); CALCIUM 9.8 mg/dL (8.5-10.3); CARBON DIOXIDE - CO2 30 mmol/L (21-32); CHLORIDE 103 mmol/L (101-111); CHOLESTEROL 300 mg/dL; CREATININE 0.7 mg/dL (0.4-1.0); GFR - MDRD 81 (>89); GLUCOSE 114 mg/dL (70-100); HDL CHOLESTEROL 60 mg/dL; LDL CHOLESTEROL,CALCULATED 215 mg/dL; LDL/HDL RATIO 3.6 (<4.4); SODIUM 143 mmol/L (135-145); TOTAL PROTEIN 7.9 g/dL (6.7-8.2); VLDL CHOLESTEROL 25 mg/dL
[2018-12-01 11:09] LABS: HB2 TOTAL 14.8 g/dL; HEMOGLOBIN A1C 0.66 g/dL; HEMOGLOBIN A1C % 6.2 % (4.6-6.2)
== END 2018-12-01 10:06 | disposition home or self-care (01) ==
LOC: LAB 10:05
PROVIDERS: ATTEND Internal Medicine
DX: E78.5 Hyperlipidemia, unspecified (principal); R61 Generalized hyperhidrosis; K21.9 Gastro-esophageal reflux disease without esophagitis; E03.9 Hypothyroidism, unspecified; R73.01 Impaired fasting glucose; Z13.6 Encounter for screening for cardiovascular disorders; Z79.899 Other long term (current) drug therapy
CPT/HCPCS: 36415; 80053; 80061; 83036; 83721; 84443; 85025

== ENCOUNTER 2019-02-27 13:50 | Outpatient (CLI) | payer MEDICARE, BC ==
--- NOTE | 2019-02-28 08:39 | Mammography Report ---
Reason: SCREENING MAMMO Procedure Date: 02/27/2019 Accession Number: [id number] / [id number] Procedure: [facility] - Screening Mammo w/Abdelrahman CPT Code: FULL RESULT: EXAM: Screening Mammo w/Abdelrahman DATE: 02/27/2019 2:19 PM CLINICAL HISTORY: Screening encounter. History of early menses. History of right breast biopsy with core placement and negative pathology. TECHNIQUE: (B) - Bilateral CC, laterally exaggerated CC, MLO views were obtained. COMPARISON: 12/29/2017 through 09/26/2014. PARENCHYMAL PATTERN: (D) - The breast(s) demonstrate(s) heterogeneously dense fibroglandular parenchyma. FINDINGS: Redemonstration of a biopsy clip in the right breast. There are no suspicious masses, calcifications, or areas of distortion. IMPRESSION: Benign findings. BI-RADS category 2. RECOMMENDATION: (ANNUAL) - Recommend routine annual screening mammography. BI-RADS CATEGORY: (2) - Benign Findings. STANDARD QUALIFYING STATEMENTS: 1. This examination was not reviewed with the aid of Computer-Aided Detection (CAD). 2. A negative or benign imaging report should not preclude biopsy if clinically suspicious findings are present. 3. Dense breasts may obscure an underlying neoplasm. 4. This examination was reviewed with the aid of 3D breast imaging (tomosynthesis).
== END 2019-02-27 13:51 | disposition home or self-care (01) ==
LOC: DI 13:50
PROVIDERS: ATTEND Internal Medicine
DX: Z12.31 Encounter for screening mammogram for malignant neoplasm of breast (principal)
CPT/HCPCS: 77063; 77067

== ENCOUNTER 2020-07-15 11:00 | Outpatient (CLI) | payer MEDICARE, BC ==
--- NOTE | 2020-07-16 14:35 | Mammography Report ---
BILATERAL DIGITAL SCREENING MAMMOGRAM 3D/2D: 07/15/2020 CLINICAL: Routine screening. Comparison is made to exams dated: 02/27/2019 mammogram, 12/29/2017 mammogram, 12/11/2016 mammogram, 10/21/2015 mammogram, 09/26/2014 mammogram, and 10/04/2013 mammogram - [facility]. The t issue of both breasts is heterogeneously dense. This may lower the sensitivity of mammography. No significant masses, calcifications, or other findings are seen in either breast. There has been no significant interval change. IMPRESSION: NEGATIVE There is no mammographic evidence of malignancy. A 1 year screening mammogram is recommended. This exam was interpreted at Station ID: [id number]. NOTE: For mammograms, a report in lay terms will be sent to the patient. Approximately 15% of breast malignancies will not be visualized mammographically. In the management of a palpable breast mass, a negative mammogram must not discourage biopsy of a clinically suspicious lesion. Electronically Signed By: Fay carney/garfield:07/15/2020 12:16:15 ACR BI-RADS Category 1: Negative 3341F PARENCHYMAL PATTERN: (D) - The breast(s) demonstrate(s) heterogeneously dense fibroglandular jace haji. BI-RADS CATEGORY: (1) - 1 RECOMMENDATION: (ANNUAL) - Recommend routine annual screening mammography. [id number] 1 year screening LATERALITY: (B)
== END 2020-07-15 11:01 | disposition home or self-care (01) ==
LOC: DI.N 11:00
PROVIDERS: ATTEND Internal Medicine
DX: Z12.31 Encounter for screening mammogram for malignant neoplasm of breast (principal)

== ENCOUNTER 2022-09-10 16:57 | Outpatient (CLI) | payer MEDICARE, BC ==
--- NOTE | 2022-09-11 14:17 | XRAY Report ---
PROCEDURE: Hand 3 View LT INDICATIONS: ACQUIRED DEFORMITY OF LEFT FINGER TECHNIQUE: 3 views of the hand(s) acquired. COMPARISON: None FINDINGS: Bones: No fractures or dislocations. No suspicious bony lesions. There is diffuse appearance of ov erall moderate IP degenerative narrowing. It is particularly prominent at the DIP joints with additio nal subluxation at the third DIP joint. Small scattered periarticular osteophytes are present. There is periarticular lucency at the third DIP joint. Soft tissues: No suspicious soft tissue calcifications. 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 Third DIP joint demonstrates prominent arthritic narrowing with periarticular osteophytes and subluxa tion. Particular lucencies present which could represent a simple degenerative subchondral cyst versu s erosions in appropriate clinical laboratory history. Reviewed by: Deana Paz MD on 09/11/2022 2:16 PM PST Approved by: Deana Paz MD on 09/11/2022 2:16 PM PST Station ID: [id number]
== END 2022-09-10 16:58 | disposition home or self-care (01) ==
LOC: DI 16:57
PROVIDERS: ATTEND Internal Medicine
DX: M19.042 Primary osteoarthritis, left hand (principal); M20.002 Unspecified deformity of left finger(s)

== ENCOUNTER 2023-02-19 10:06 | Outpatient (CLI) | payer MEDICARE, BC ==
[2023-02-19 10:24] LABS: BASOPHILS % (AUTO) 0.6 %; EOSINOPHILS # (AUTO) 0.2 10^3/uL (0.0-0.7); EOSINOPHILS % (AUTO) 3.4 %; HCT - HEMATOCRIT 40.8 % (37.0-47.0); HGB - HEMOGLOBIN 13.4 g/dL (12.0-16.0); LYMPHOCYTES # (AUTO) 1.5 10^3/uL (1.5-3.5); LYMPHOCYTES % (AUTO) 28.1 %; MEAN CORPUSCULAR HEMOGLOBIN 29.7 pg (27.0-31.0); MEAN CORPUSCULAR HGB CONC 32.8 g/dL (32.0-36.0); MEAN CORPUSCULAR VOLUME 90.5 fL (81.0-99.0); MEAN PLATELET VOLUME 10.1 fL (7.9-10.8); MONOCYTES # (AUTO) 0.4 10^3/uL (0.0-1.0); MONOCYTES % (AUTO) 7.4 %; NEUTROPHILS # (AUTO) 3.2 10^3/uL (1.5-6.6); NEUTROPHILS % (AUTO) 60.3 %; PLT - PLATELET COUNT 255 10^3/uL (130-450); RED BLOOD COUNT 4.51 10^6/uL (4.20-5.40); RED CELL DISTRIBUTION WIDTH 13.6 % (12.0-15.0); WHITE BLOOD COUNT 5.3 x10^3/uL (4.8-10.8)
[2023-02-19 10:40] LABS: ALBUMIN/GLOBULIN RATIO 1.1 (1.0-2.2); ALKALINE PHOSPHATASE 61 IU/L (42-121); ALT ALANINE AMINOTRANSFERASE 13 IU/L (10-60); AST ASPARTATE AMINOTRANSFERASE 20 IU/L (10-42); BILIRUBIN,TOTAL 0.7 mg/dL (0.2-1.0); BUN - BLOOD UREA NITROGEN 13 mg/dL (6-20); CALCIUM 9.2 mg/dL (8.5-10.3); CARBON DIOXIDE - CO2 29 mmol/L (21-32); CHLORIDE 103 mmol/L (101-111); CHOL/HDL RATIO 3.9 (<4.4); CHOLESTEROL 255 mg/dL; CREATININE 0.6 mg/dL (0.4-1.0); GFR - MDRD 96 (>89); GLUCOSE 107 mg/dL (70-100); HDL CHOLESTEROL 66 mg/dL; LDL CHOLESTEROL,CALCULATED 176 mg/dL; LDL/HDL RATIO 2.7 (<4.4); POTASSIUM 4.1 mmol/L (3.5-5.0); SODIUM 139 mmol/L (135-145); TOTAL PROTEIN 7.6 g/dL (6.7-8.2); TRIGLYCERIDES 65 mg/dL; VLDL CHOLESTEROL 13 mg/dL
[2023-02-19 10:52] LABS: THYROID STIMULATING HORMONE 1.55 uIU/mL (0.34-5.60)
[2023-02-19 13:20] LABS: ESTIMATED AVERAGE GLUCOSE 131 mg/dL (70-100); HEMOGLOBIN A1c% 6.2 % (4.27-6.07)
== END 2023-02-19 10:07 | disposition home or self-care (01) ==
LOC: LAB 10:06
PROVIDERS: ATTEND Internal Medicine
DX: E11.9 Type 2 diabetes mellitus without complications (principal); Z79.899 Other long term (current) drug therapy; E03.9 Hypothyroidism, unspecified; E78.5 Hyperlipidemia, unspecified
CPT/HCPCS: 36415; 80053; 80061; 82607; 83036; 83721; 84443; 85025

== ENCOUNTER 2023-03-11 11:02 | Outpatient (CLI) | payer MEDICARE, BC ==
--- NOTE | 2023-03-17 12:07 | Mammography Report ---
BILATERAL DIGITAL SCREENING MAMMOGRAM 3D/2D: 03/11/2023 CLINICAL: Routine screening. Comparison is made to exams dated: 02/26/2022 mammogram - [facility], 07/15/2020 mammogram, 019 mammogram, 12/29/2017 mammogram, 12/11/2016 mammogram, and 10/21/2015 mammogram - [facility]. Both breasts are heterogeneously dense, which may obscure small masses (category c / 51-75% glandular tissue). There is a biopsy clip in the right breast. No significant masses, calcifications, or other findings are seen in either breast. There has been no significant interval change. IMPRESSION: NEGATIVE There is no mammographic evidence of malignancy. A 1 year screening mammogram is recommended. Based on the Tyrer Cuzick model (a risk assessment model) the patients lifetime risk is 1.2% and her 10 year risk is 0.0%. According to the ACR, ACS, and NCCN guidelines, an annual breast MRI exam colleen g with mammogram is recommended if the patients lifetime risk is 20% or greater. This exam was interpreted at Station ID: [id number]. NOTE: For mammograms, a report in lay terms will be sent to the patient. Approximately 15% of breast malignancies will not be visualized mammographically. In the management of a palpable breast mass, a negative mammogram must not discourage biopsy of a clinically suspicious lesion. Electronically Signed By: Marion perdomo/garfield:03/17/2023 09:54:39 letter sent: No_Letter ACR BI-RADS Category 1: Negative 3341F PARENCHYMAL PATTERN: (D) - The breast(s) demonstrate(s) heterogeneously dense fibroglandular jace haji. BI-RADS CATEGORY: (1) - 1 Mammogram [id number] 1 year screening LATERALITY: (B)
== END 2023-03-11 11:03 | disposition home or self-care (01) ==
LOC: DI.N 11:02
PROVIDERS: ATTEND Internal Medicine
DX: Z12.31 Encounter for screening mammogram for malignant neoplasm of breast (principal)

== ENCOUNTER 2023-06-01 17:11 | Outpatient (CLI) | payer MEDICARE, BC ==
--- NOTE | 2023-06-01 17:59 | Ultrasound Report ---
PROCEDURE: Duplex Ext Veins Left INDICATIONS: PAIN IN LEFT LEG TECHNIQUE: Real-time imaging, as well as color and pulse Doppler interrogation, were performed of the lower extr emity deep veins from the inguinal ligament to the popliteal fossa. Attempted visualization of the ca lf veins was performed. COMPARISON: None. FINDINGS: The deep veins are normally compressible, and free of intraluminal thrombus. Color and pu lse Doppler demonstrate normal phasic intraluminal flow. There is normal augmentation response to di stal compression maneuver. IMPRESSION: No deep venous thrombosis of the visualized lower extremity. Reviewed by: Pipe Mccollum MD on 06/01/2023 5:57 PM PDT Approved by: Pipe Mccollum MD on 06/01/2023 5:57 PM PDT Station ID: [id number]
--- NOTE | 2023-06-02 15:09 | XRAY Report ---
PROCEDURE: Hip w/Pelvis 2-3V LT INDICATIONS: LEFT HIP PAIN TECHNIQUE: AP pelvis with lateral view(s) of the left hip(s). COMPARISON: None. FINDINGS: Bones: No fractures or dislocations. No suspicious bony lesions. Rightward scoliotic curvature wi th apex at L2. Moderate bilateral degenerative hip joint space narrowing. No erosions. Soft tissues: No suspicious soft tissue calcifications or masses. IMPRESSION: Arthritic changes as above. No visualized acute fracture or dislocation. However, occult injury canno t be excluded. Recommend short interval imaging follow-up in 7-10 days as clinically indicated for ad ditional evaluation. Reviewed by: Deana Paz MD on 06/02/2023 3:08 PM PDT Approved by: Deana Paz MD on 06/02/2023 3:08 PM PDT Station ID: [id number]
== END 2023-06-01 17:12 | disposition home or self-care (01) ==
LOC: DI 17:11
PROVIDERS: ATTEND Internal Medicine
DX: M79.605 Pain in left leg (principal); M16.12 Unilateral primary osteoarthritis, left hip